=== PATIENT | male | born 1960 | race Caucasian/White ===

== ENCOUNTER → 2019-12-28 | Outpatient (CLI) | payer OTHER | END | disposition home or self-care (01) | LOC: CVU 12:06 | PROVIDERS: ATTEND Internal Medicine Cardiovascular Disease | DX: Z01.810 Encounter for preprocedural cardiovascular examination (principal); I08.2 Rheumatic disorders of both aortic and tricuspid valves; I11.9 Hypertensive heart disease without heart failure | CPT/HCPCS: 93306; 93356 ==

== ENCOUNTER 2019-12-29 07:50 | Outpatient (CLI) | payer OTHER ==
[2019-12-29] MEDS ORDERED: REGADENOSON 0.4 MG/5 ML SYRINGE ONE (09:23)
== END 2019-12-29 23:59 | disposition home or self-care (01) ==
LOC: RAD 07:50
PROVIDERS: ATTEND Internal Medicine Cardiovascular Disease
DX: Z01.810 Encounter for preprocedural cardiovascular examination (principal); I10 Essential (primary) hypertension
CPT/HCPCS: 78452; 93017; A9502; J2785

== ENCOUNTER 2020-03-05 19:03 | Emergency (ER) | payer OTHER ==
[~2020-03-05] VITALS: Ht 177.8 cm; Wt 93.2 kg
--- NOTE | 2020-03-05 19:24 | NUR ---
Pt walked to room, changing to gown appears very anxious fidgeting with clothes, belongings, hyperventilating. Encouraged pt to relax. Waiting for ERP evaluation.
[2020-03-05] MEDS ORDERED: hydrOXyzine 50MG TABLET ONE (19:40)
[2020-03-05] MEDS ORDERED: FAMOTIDINE 20 MG TABLET ONE (19:40)
--- NOTE | 2020-03-05 19:44 | NUR ---
Medicated per order, will continue to monitor.
[2020-03-05] MEDS ORDERED: FAMOTIDINE 20 MG TABLET PO ONE (20:00)
[2020-03-05 20:05] VITALS: BP 170/92
--- NOTE | 2020-03-05 20:22 | NUR ---
Pt waiting for ERP evaluation.
== END 2020-03-05 21:28 | disposition home or self-care (01) ==
LOC: ED 19:45
DX: L50.1 Idiopathic urticaria (principal); B86 Scabies; T50.905A Adverse effect of unspecified drugs, medicaments and biological substances, initial encounter; R06.02 Shortness of breath; I10 Essential (primary) hypertension; J44.9 Chronic obstructive pulmonary disease, unspecified; Y92.89 Other specified places as the place of occurrence of the external cause
CPT/HCPCS: 93005; 99284; J7512; Q0177

== ENCOUNTER 2020-08-12 12:39 | Emergency (ER) | payer OTHER ==
[~2020-08-12] VITALS: Ht 167.6 cm; Wt 90.0 kg
[2020-08-12 13:00] VITALS: BP 137/80
--- NOTE | 2020-08-12 15:20 | NUR ---
NO ANS WHEN CALLED FOR ROOM X 1
--- NOTE | 2020-08-12 15:32 | NUR ---
NO ANSWER X 2
--- NOTE | 2020-08-12 15:36 | NUR ---
NO ANSWER X 3
== END 2020-08-12 15:37 | disposition left against medical advice (07) ==
LOC: ED 13:00
DX: R51.9 Headache, unspecified (principal); Z53.21 Procedure and treatment not carried out due to patient leaving prior to being seen by health care provider

== ENCOUNTER 2020-09-15 03:32 | Emergency (ER) | payer OTHER ==
[2020-09-15] MEDS ORDERED: LIDOCAINE 2%,20 ML JEL.PF.APP MM ONE ×2 (03:48→04:00)
--- NOTE | 2020-09-15 04:14 | NUR ---
ATTEMPTED TO INSERT A 16FR REGULAR SANTORO, AND UNABLE TO ADVANCE. SECOND ATTEMPT MADE AND SUCCESSFUL WITH A 14FR COUDE SANTORO. DRAINING DARK, CLOUDY YELLOW URINE. PT WITH IMMEDIATE RELIEF.
--- NOTE | 2020-09-15 04:18 | NUR ---
CATHETER DRAINING OVER 2000ML
--- NOTE | 2020-09-15 04:21 | NUR ---
REPORT RECEIVED FROM RADHA MACDONALD
[2020-09-15 04:45] LABS: MICROSCOPIC INDICATED
--- NOTE | 2020-09-15 05:02 | NUR ---
PT SITTING UPRIGHT ON JASWINDER PALOMO VSS. PT DENIES ANY NEEDS AT THIS TIME. CALL LIGHT IN REACH
--- NOTE | 2020-09-15 06:16 | NUR ---
LEG BAG APPLIED. PT PROVIDED EDUCATION ON CATH CARE. PT ABLE TO DEMONSTRATE APPROPRIATE CARE TECHNIQUES AND VERBALIZED UNDERSTANDING. DENIES ANY ADDITIONAL QUESTIONS AT THIS TIME. AWAITING D/C.
[2020-09-15 06:17] VITALS: BP 148/72
--- NOTE | 2020-09-15 06:25 | NUR ---
Patient given discharge instructions and they have confirmed that they understand the instructions. Patient ambulatory with steady gait. NAD, all questions answered appropriately, denies additional needs at this time. No personal belongings left in room after discharge.
== END 2020-09-15 06:26 | disposition home or self-care (01) ==
LOC: ED 06:09
DX: N40.1 Benign prostatic hyperplasia with lower urinary tract symptoms (principal); R33.8 Other retention of urine; N30.01 Acute cystitis with hematuria; I10 Essential (primary) hypertension; J44.9 Chronic obstructive pulmonary disease, unspecified; Z87.891 Personal history of nicotine dependence
CPT/HCPCS: 51702; 81001; 87077; 87086; 87186; 93005; 99284

== ENCOUNTER 2020-09-15 07:08 | Emergency (ER) | payer OTHER ==
[~2020-09-15] VITALS: Ht 177.8 cm; Wt 87.6 kg
[2020-09-15] MEDS ORDERED: TOLTERODINE 2MG TABLET PO ONE (07:17)
[2020-09-15] MEDS ORDERED: SODIUM CHLORIDE FLUSH 10ML SYR IVF ONE (07:30)
[2020-09-15 07:39] LABS: BASOPHILS % (AUTO) 1 % (0-1); EOSINOPHILS % (AUTO) 0 % (1-7); LYMPHOCYTES % (AUTO) 6 % (22-44); MEAN CORPUSCULAR HEMOGLOBIN 32.7 pg (27.5-34.5); MEAN CORPUSCULAR HGB CONC 34.4 g/dL (33.2-36.2); MEAN PLATELET VOLUME 7.5 fL (7.4-10.4); MONOCYTES % (AUTO) 11 % (2-9); NEUTROPHILS % (AUTO) 82 % (42-75); PLATELET COUNT 261 x10^3/uL (130-400); RED BLOOD COUNT 5.03 x10^6/uL (4.38-5.82); RED CELL DISTRIBUTION WIDTH 14.1 % (9.4-14.8)
[2020-09-15] MEDS ORDERED: HYDROmorphone 2 MG/ML, 1ML ONE ×2 (07:39→09:57)
[2020-09-15 07:48] LABS: ALBUMIN 3.6 g/dL (3.4-5.0); ANION GAP 7 mmol/L (5-15); CALCIUM 8.7 mg/dL (8.5-10.1); CHLORIDE 107 mmol/L (98-107)
[2020-09-15] MEDS: HYDROmorphone 1 MG/ML, 1ML INJ IVPush PRN ×2 (08:04→10:03)
--- NOTE | 2020-09-15 08:16 | NUR ---
PT IN GOWN, PLACED ON VITALS MONITORS. BLADDER SCAN SHOWED NO URINE IN BLADDER, 0CC. PT SANTORO BAG DRAINING. 300 CC URINE REMOVED FROM SANTORO BAG. IV STARTED, ORDERED PAIN MEDS GIVEN. WILL CONTINUE TO MONITOR.
--- NOTE | 2020-09-15 09:11 | NUR ---
PT RESTING IN BED, PT STATED HE IS STILL SORE FROM HIS EXTENDED BLADDER FROM EARLIER TODAY BUT PT IN LESS PAIN THEN EARLIER. WILL CONTINUE TO MONITOR.
--- NOTE | 2020-09-15 10:10 | NUR ---
PT MEDICATED FOR PAIN PER EMAR. PT BP ELEVATED. WILL INFORM ERP.
--- NOTE | 2020-09-15 11:19 | NUR ---
BREAK RN: PT LAYING ON GURNEY AWAKE & MORE COMFORTABLE AFTER PAIN MED, RESPONDS APPROP TO STAFF, NAD, NO NEEDS AT THIS TIME, CALL LIGHT WITHIN REACH.
[2020-09-15 12:05] VITALS: BP 165/78
== END 2020-09-15 12:09 | disposition home or self-care (01) ==
LOC: ED 08:45
DX: N32.89 Other specified disorders of bladder (principal); I10 Essential (primary) hypertension; J44.9 Chronic obstructive pulmonary disease, unspecified
CPT/HCPCS: 36415; 80048; 82040; 85025; 96374; 96376; 99285; J1170

== ENCOUNTER 2020-09-18 03:25 | Emergency (ER) | payer OTHER ==
[~2020-09-18] VITALS: Ht 177.8 cm; Wt 80.0 kg
[2020-09-18] MEDS ORDERED: ONDANSETRON 2MG/ML, 2ML ONE (03:59)
[2020-09-18] MEDS ORDERED: ONDANSETRON 2MG/ML, 2ML IVPush ONE (04:00)
[2020-09-18 04:17] VITALS: BP 170/104
[2020-09-18 04:34] LABS: BASOPHILS % (AUTO) 0 % (0-1); EOSINOPHILS % (AUTO) 1 % (1-7); LYMPHOCYTES % (AUTO) 14 % (22-44); MEAN CORPUSCULAR HEMOGLOBIN 32.8 pg (27.5-34.5); MEAN CORPUSCULAR HGB CONC 34.1 g/dL (33.2-36.2); MEAN PLATELET VOLUME 7.6 fL (7.4-10.4); MONOCYTES % (AUTO) 9 % (2-9); NEUTROPHILS % (AUTO) 76 % (42-75); PLATELET COUNT 284 x10^3/uL (130-400); RED BLOOD COUNT 5.04 x10^6/uL (4.38-5.82)
[2020-09-18 04:45] LABS: ANION GAP 5 mmol/L (5-15); CALCIUM 9.5 mg/dL (8.5-10.1); CHLORIDE 107 mmol/L (98-107); CREATININE 0.94 mg/dL (0.7-1.3)
[2020-09-18] MEDS ORDERED: PROMETHAZINE 25 MG/ML, 1ML ONE (05:07)
[2020-09-18] MEDS ORDERED: MORPHINE SULFATE 4 MG/ML, 1ML ONE (05:08)
[2020-09-18] MEDS ORDERED: PROMETHAZINE 25 MG/ML, 1ML IM ONE (05:30)
[2020-09-18] MEDS ORDERED: MORPHINE SULFATE 4 MG/ML, 1ML IVPush ONE (05:30)
--- NOTE | 2020-09-18 06:14 | NUR ---
PATIENT RESTING IN STRETCHER WITH EYES CLOSED. NAD. PATIENT STATES HE IS FEELING BETTER. PATIENT NEEDS TO CALL HIS ROOMATE AND SEE IF HE CAN PICK PATIENT UP/ OR IF THE APT IS OPEN FOR HIM TO ENTER. WILL CONTINUE TO MONITOR AND FACILITATE DISCHARGE.
--- NOTE | 2020-09-18 06:30 | NUR ---
PATIENT ALLERGIC TO NAPROXEN. PER MD TIMMONS "CROSS OUT" RX THAT JENN NICOLE WROTE AND ADVISE PATIENT TO TAKE OTC TYLENOL FOR PAIN.
== END 2020-09-18 06:36 | disposition home or self-care (01) ==
LOC: ED 05:35
DX: R11.2 Nausea with vomiting, unspecified (principal); R10.9 Unspecified abdominal pain; R50.9 Fever, unspecified; F17.210 Nicotine dependence, cigarettes, uncomplicated; Z72.9 Problem related to lifestyle, unspecified; J44.9 Chronic obstructive pulmonary disease, unspecified; I10 Essential (primary) hypertension
CPT/HCPCS: 36415; 80048; 85025; 96372; 96374; 96375; 99284; 99406; J2270; J2405; J2550